=== PATIENT | male | born 1985 | race Caucasian/White ===

== ENCOUNTER 2017-05-06 10:39 | Emergency (ER) | payer BC ==
[2017-05-06 10:59] VITALS: TEMP 98.2; O2SAT 100
[2017-05-06] MEDS ORDERED: Sodium Chloride 0.9% 1,000 ML IV STA (11:00)
[2017-05-06 11:02] VITALS: BP 137/92; PULSE 78; RESP 20
[2017-05-06 11:31] LABS: BASO % 0.4 % (0.0-2.0); EOS # 0.1 K/uL (0.0-0.7); EOS % 0.7 % (0.0-4.0); HEMATOCRIT 43.3 % (35.0-51.0); LYMPH # 1.7 K/uL (1.0-4.3); LYMPH % 19.2 % (20.0-40.0); MEAN CELL VOLUME 82.8 fl (80.0-94.0); MEAN CORPUSCULAR HEMOGLOBIN 28.1 pg (27.0-31.0); MEAN PLATELET VOLUME 8.8 fl (7.2-11.7); MONO # 0.8 K/uL (0.0-0.8); MONO % 8.6 % (0.0-10.0); NEUT # 6.5 K/uL (1.8-7.0); NEUT % 71.1 % (50.0-75.0); NRBC % 0.1 % (0.0-0.0); RED CELL DISTRIBUTION WIDTH 12.9 % (11.5-14.5); WHITE BLOOD COUNT 9.1 K/uL (4.8-10.8)
[2017-05-06 11:48] LABS: ALB/GLOB RATIO 1.3 (1.0-2.1); ALKALINE PHOSPHATASE 75 U/L (38-126); ALT/SGPT 56 U/L (21-72); AST/SGOT 30 U/L (17-59); BILIRUBIN,TOTAL 0.7 mg/dl (0.2-1.3); BLOOD UREA NITROGEN 20 mg/dl (9-20); CALCIUM 9.8 mg/dL (8.4-10.2); CARBON DIOXIDE 23 mmol/L (22-30); CHLORIDE 98 mmol/L (98-107); GFR AFRICAN-AMERICAN > 60; GLUCOSE,RANDOM 112 mg/dL (75-110); POTASSIUM 4.8 MMOL/L (3.6-5.0); SODIUM 134 mmol/l (132-148); TOTAL PROTEIN 8.6 G/DL (6.3-8.2)
[2017-05-06 12:00] LABS: RBC URINE 215 /hpf (0-3); URINE BILIRUBIN NEGATIVE (NEGATIVE); URINE BLOOD MODERATE (NEGATIVE); URINE COLOR YELLOW (YELLOW); URINE GLUCOSE (UA) NEG (Normal); URINE KETONE NEGATIVE (NEGATIVE); URINE LEUKOCYTE ESTERASE NEG Leu/uL (Negative); URINE PROTEIN NEGATIVE (NEGATIVE); URINE UROBILINOGEN 0.2-1.0 mg/dL (0.2-1.0); WBC URINE 2 /hpf (0-5)
--- NOTE | 2017-05-06 12:52 | ED PDOC ---
HPI: Abdomen Time Seen by Provider: 05/06/17 10:46 Chief Complaint (Nursing): Abdominal Pain Chief Complaint (Provider): Left flank pain History Per: Patient History/Exam Limitations: no limitations Onset/Duration Of Symptoms: Days Outside of [place] travel?: No Current Symptoms Are (Timing): Still Present Associated Symptoms: denies: Fever Additional Complaint(s): The patient is a 31yo male, with past medical history of several renal stones, recently diagnosed with left testicular mass and is pending urology appointment tomorrow. Patient now presents with left flank pain, nausea and urinary frequency. Patient reports his symptoms are consistent with past history of renal colic. Patient reports he had a CT AP yesterday as part of workup for his testicular mass and is pending results. He denies any fever, gross hematuria, weakness. Patient offers no additional medical complaints. Urologist: Follows up in [facility] Past Medical History Reviewed: Historical Data, Nursing Documentation, Vital Signs Vital Signs: Last Vital Signs Temp 98.2 F 05/06/17 11:00 Pulse 78 05/06/17 11:00 Resp 20 05/06/17 11:00 BP 137/92 H 05/06/17 11:00 Pulse Ox 100 05/06/17 14:24 - Medical History PMH: Kidney Stones - Surgical History Surgical History: No Surg Hx - Family History Family History: States: Unknown Family Hx - Home Medications Home Medications: Ambulatory Orders Medication Instructions Recorded Naproxen [Naprosyn] 500 mg PO BID PRN #14 tablet 05/06/17 Ondansetron [Zofran] 4 mg PO Q6H PRN #10 tab 05/06/17 Tamsulosin [Flomax] 0.4 mg PO DAILY #3 cap 05/06/17 traMADol [Ultram] 50 mg PO TID PRN #12 tab 05/06/17 - Allergies Allergies/Adverse Reactions: Allergies Allergy/AdvReac Type Severity Reaction Status Date / Time No Known Allergies Allergy Verified 05/06/17 10:55 Review of Systems ROS Statement: Except As Marked, All Systems Reviewed And Found Negative Gastrointestinal: Positive for: Nausea, Other (flank pain) Genitourinary Male: Positive for: Frequency Physical Exam - Reviewed Nursing Documentation Reviewed: Yes Vital Signs Reviewed: Yes - Physical Exam Appears: Positive for: Non-toxic Head Exam: Positive for: ATRAUMATIC, NORMAL INSPECTION, NORMOCEPHALIC Skin: Positive for: Normal Color Eye Exam: Positive for: Normal appearance Neck: Positive for: Normal Cardiovascular/Chest: Positive for: Regular Rate, Rhythm Respiratory: Positive for: Normal Breath Sounds. Negative for: Respiratory Distress Gastrointestinal/Abdominal: Positive for: Tenderness (left abdominal and left flank tenderness) Neurologic/Psych: Positive for: Alert, Oriented. Negative for: Motor/Sensory Deficits - Laboratory Results Result Diagrams: 05/06/17 11:22 05/06/17 11:22 - ECG O2 Sat by Pulse Oximetry: 100 (RA) Pulse Ox Interpretation: Normal Medical Decision Making Medical Decision Making: Time: 1050 Impression: Left flank pain, left abdominal pain Plan: -- UDip demonstrates moderate blood, workup for renal colic started. Given patient just had CT yesterday, will try to avoid further radiation exposure. Conservative therapy used, US ordered. -- Toradol 30 mg IV -- IV NS 1000 ml/hr -- Zofran 4 mg IV -- Flomax 0.4 mg IV Reassess Time: 1135 Patient states pain is still present but decreasing in intensity. Time: 1220 Patient resting in room, states pain is improving but not resolved. Time: 1305 Patient reports pain is still present but better than before. Time: 1400 Patient reports pain has completely resolved. US Discussed with radiologist who states patient has mild hydronephrosis not consistent with his current presentation. Patient given copy of US results to take to his urologist who he is following up with tomorrow. Time: 1415 Patient ambulating without pain, appears well and is stable for discharge home. Scribe Attestation: Documented by Macrina Marcos acting as a scribe for Larry Soliz DO. Provider Attestation: All medical record entries made by the Scribe were at my direction and personally dictated by me. I have reviewed the chart and agree that the record accurately reflects my personal performance of the history, physical exam, medical decision making, and the department course for this patient. I have also personally directed, reviewed, and agree with the discharge instructions and disposition. Disposition - Clinical Impression Clinical Impression: Renal colic - Disposition Referrals: Brian Torres MD [Staff Provider] - Disposition: Routine/Home Disposition Time: 14:15 Condition: STABLE Additional Instructions: Return to ER for any new or worsening symptoms. Take medications as directed. See your urologist tomorrow and show report of ultrasound, you may require further testing/ Prescriptions: Naproxen [Naprosyn] 500 mg PO BID PRN #14 tablet PRN Reason: Pain, Moderate (4-7) Ondansetron [Zofran] 4 mg PO Q6H PRN #10 tab PRN Reason: Nausea/Vomiting Tamsulosin [Flomax] 0.4 mg PO DAILY #3 cap traMADol [Ultram] 50 mg PO TID PRN #12 tab PRN Reason: Pain, Moderate (4-7) Instructions: Kidney Stones (ED), Renal Colic (ED) Forms: [employer] (Filipino)
--- NOTE | 2017-05-06 13:00 | US ---
Renal ultrasound dated 05/06/2017. History: Left flank pain. History of renal colic. Sonographic evaluation of the kidneys performed. Findings: The right kidney measures 12.1 x 7.3 x 5.1 cm. There is mild right-sided hydronephrosis. No shadowing calculi renal masses or collections seen. Left kidney measures 12.0 x 7.3 x 4.0 cm. No evidence of shadowing calculi or hydronephrosis. No obvious renal mass or collection. Impression: Mild right-sided hydronephrosis. No evidence of renal calculi.
== END 2017-05-06 14:25 | disposition home or self-care (01) ==
LOC: H.ER 10:39
DX: N23 Unspecified renal colic (principal)
CPT/HCPCS: 76770; 80053; 81003; 85025; 96360; 99282; J1885; J2405; J7040

== ENCOUNTER 2017-12-29 16:26 | Emergency (ER) | payer BC ==
[2017-12-29 16:37] VITALS: BP 134/91; PULSE 93; RESP 16; TEMP 98.5; O2SAT 97
--- NOTE | 2017-12-29 17:17 | ED PDOC ---
HPI: Wound Care - HPI Time Seen by Provider: 12/29/17 16:37 Chief Complaint (Nursing): Wound Check Chief Complaint (Provider): Surgical Wound Check History Per: Patient Exam Limitations: no limitations Current Symptoms Are (Timing): Still Present Additional Complaint(s): 32 y/o male presents to the ED complaining of drainage from his surgical wound that started at noon today. Patient states that he had a microdiscectomy to lumbar spine on December 21. He states he did not notice any drainage from wound until today. Patient denies any pain, fever, or chills. He has a follow up appointment on with his neurosurgeon in [facility]. PMD: None Past Medical History Reviewed: Historical Data, Nursing Documentation, Vital Signs Vital Signs: Last Vital Signs Temp 98.5 F 12/29/17 16:32 Pulse 93 H 12/29/17 16:32 Resp 16 12/29/17 16:32 BP 134/91 H 12/29/17 16:32 Pulse Ox 97 12/29/17 16:32 - Medical History PMH: Kidney Stones - Surgical History Surgical History: Back Surgery - Family History Family History: States: No Known Family Hx - Living Arrangements Living Arrangements: With Family - Social History Current smoker - smoking cessation education provided: No Alcohol: None Drugs: Denies - Immunization History Hx Tetanus Toxoid Vaccination: Yes - Home Medications Home Medications: Ambulatory Orders Medication Instructions Recorded Naproxen [Naprosyn] 500 mg PO BID PRN #14 tablet 05/06/17 Ondansetron [Zofran] 4 mg PO Q6H PRN #10 tab 05/06/17 Tamsulosin [Flomax] 0.4 mg PO DAILY #3 cap 05/06/17 traMADol [Ultram] 50 mg PO TID PRN #12 tab 05/06/17 Clindamycin [Cleocin] 0 mg PO QID #28 cap 12/29/17 - Allergies Allergies/Adverse Reactions: Allergies Allergy/AdvReac Type Severity Reaction Status Date / Time No Known Allergies Allergy Verified 12/29/17 16:32 Review of Systems ROS Statement: Except As Marked, All Systems Reviewed And Found Negative Constitutional: Negative for: Fever, Chills Musculoskeletal: Negative for: Back Pain Skin: Positive for: Other (drainage from surgical wound to lumbar spine) Physical Exam - Reviewed Nursing Documentation Reviewed: Yes Vital Signs Reviewed: Yes - Physical Exam Appears: Positive for: Well, Non-toxic, No Acute Distress Skin: Positive for: Normal Color Cardiovascular/Chest: Positive for: Regular Rate, Rhythm Respiratory: Positive for: Normal Breath Sounds Back: Positive for: Other (surgical incision to midline of lumbar spine with slight localized erythema and mild serosanguinous drainage, minimal tenderness to palpation) Extremity: Positive for: Normal ROM Neurologic/Psych: Positive for: Alert, Oriented, Gait (steady) - ECG O2 Sat by Pulse Oximetry: 97 (RA) Pulse Ox Interpretation: Normal Medical Decision Making Medical Decision Making: Initial Impression: Surgical site infection Patient is well-appearing, afebrile. Patient given wound care instructions and prescription for clindamycin. He has follow-up this coming week with neurosurgeon in [place]. Patient is aware he can return to emergency room anytime for acutely worsening symptoms. Scribe Attestation: Documented by Tee Lopes, acting as a scribe for Jennifer Robert PA-C. Provider Scribe Attestation: All medical record entries made by the Scribe were at my direction and personally dictated by me. I have reviewed the chart and agree that the record accurately reflects my personal performance of the history, physical exam, medical decision making, and the department course for this patient. I have also personally directed, reviewed, and agree with the discharge instructions and disposition. Disposition - Clinical Impression Clinical Impression: Surgical wound infection - Patient ED Disposition Is Patient to be Admitted: No Counseled Patient/Family Regarding: Diagnosis, Need For Followup, Rx Given - Disposition Referrals: [facility] [Outside] Disposition: Routine/Home Disposition Time: 17:25 Condition: STABLE Additional Instructions: Keep wound clean and dry. Wash daily with soap and water. Do not apply any topical ointments. Take antibiotics as directed. Follow-up next week as scheduled with surgeon. Return to emergency room anytime for acutely worsening symptoms. Prescriptions: Clindamycin [Cleocin] 0 mg PO QID #28 cap Instructions: Wound Infection Forms: [employer] (German)
== END 2017-12-29 17:35 | disposition home or self-care (01) ==
LOC: H.ER 16:26
DX: T81.4XXA Infection following a procedure, initial encounter (principal)